=== PATIENT | male | born 1965 | race Two or more races ===

== ENCOUNTER 2017-02-13 13:44 | Day surgery (SDC) | payer MEDICAID ==
[2017-01-28 15:58] VITALS: BMI 35.9
[2017-02-13] MEDS ORDERED: Midazolam 2 MG/2 ML VIAL ONE (16:56)
--- NOTE | 2017-02-14 02:54 | CARDCATH ---
PROCEDURE DATE: 02/13/2017 INDICATIONS: Mr. Balaji Pineda is a 51-year-old male with past medical history significant for hypertension, diabetes, and obesity, referred to md for evaluation of abnormal stress test. PROCEDURES PERFORMED: Left heart catheterization with selective left and right coronary angiogram via right femoral approach, left ventriculogram Angio-Seal closure device for hemostasis. TECHNIQUES OF PROCEDURE: After obtaining informed consent, the patient was brought to the cardiac catheterization suite in post-absorptive and non-sedated state. The patient was prepped and draped in the usual sterile fashion. A 2% lidocaine was used for infiltration of anesthesia. Using modified Seldinger technique, 6-[place] sheath was introduced into the right femoral artery subsequently over a J-wire. JL4 and JR4 diagnostic catheter were used to engage the left and right coronary system. Angiograms were obtained in different orthogonal views. Subsequently, over a J-wire, catheter was exchanged to a pigtail catheter, which was crossed across the aortic valve. LV gram was obtained in the MITCHELL view. Hemodynamics were obtained and pullback gradient was noted. HEMODYNAMIC FINDINGS: Left ventricular end-diastolic pressure was 21 mmHg. There was no gradient noted upon the aortic valve. There was no AI and no OK. Left ventricular ejection fraction estimated to be 60% to 65%. CORONARY ANATOMY: Left main short bifurcates into left anterior descending and left circumflex coronary artery. Left anterior descending large-size vessel gives off a large diagonal branch and 2 small diagonal branches. Mid LAD has mild 50% to 55% stenosis. Left circumflex runs in the AV groove gives off large obtuse marginal branch with mild nonobstructive disease, right coronary artery large size vessel distally tapers into a small size vessel dominant circulation. IMPRESSION: Mild nonobstructive coronary artery disease, normal left ventricular ejection fraction. RECOMMENDATIONS: Aggressive medical management, risk factor modification. The patient can be discharged home and follow up as outpatient setting in 1 to 2 weeks' time. Al Mosley MD
[2017-02-14 16:31] VITALS: RESP 22; O2SAT 99
== END 2017-02-13 20:05 | disposition home or self-care (01) ==
LOC: C.CATHLAB 13:44
PROVIDERS: ATTEND Internal Medicine Interventional Cardiology
DX: I25.10 Atherosclerotic heart disease of native coronary artery without angina pectoris (principal); I10 Essential (primary) hypertension; E11.9 Type 2 diabetes mellitus without complications; E55.9 Vitamin D deficiency, unspecified; I47.2 Ventricular tachycardia; Z91.14 Patient's other noncompliance with medication regimen
CPT/HCPCS: 93458; 94770; J1644; J2250; J3010